=== PATIENT | female | born 1965 | race Asian ===

== ENCOUNTER 2023-07-07 08:26 | Emergency (ER) | payer BC, MEDICAID ==
[~2023-07-07] VITALS: Ht 154.9 cm; Wt 58.2 kg
[~2023-07-07 08:26] MED LIST: ALBU8.5H17 IH; BUSP10TA10 PO; DICY10CA88 PO; FLUT1DIS4 INH; HYDR-3965 PO; HYOS0.1275 SL; LANS30CA37 PO; LORA10TA7 PO; OMEP20CA15 PO; [UNRECOGNIZED DRUG - CODE] PO
[2023-07-07 08:29] VITALS: BP 159/89; PULSE 116; RESP 18; TEMP 97.8; O2SAT 98
[2023-07-07] MEDS ORDERED: ACET-3209 PO (09:40)
[2023-07-07] MEDS ORDERED: AMOX-580 PO (09:40)
== END 2023-07-07 10:09 | disposition home or self-care (01) ==
LOC: ER 08:26
DX: M54.2 Cervicalgia (principal); R51.9 Headache, unspecified; R05.9 Cough, unspecified; M54.50 Low back pain, unspecified; R20.0 Anesthesia of skin; E78.00 Pure hypercholesterolemia, unspecified; J02.9 Acute pharyngitis, unspecified; J39.2 Other diseases of pharynx; Z88.8 Allergy status to other drugs, medicaments and biological substances; Z79.2 Long term (current) use of antibiotics; Z79.899 Other long term (current) drug therapy
CPT/HCPCS: 99283